=== PATIENT | female | born 1970 | race Caucasian/White ===

== ENCOUNTER 2025-02-04 21:04 | Emergency (ER) | payer OTHER, SELFPAY ==
[2025-02-04 21:07] VITALS: BP 203/101
[2025-02-04 21:43] VITALS: BP 185/88
--- NOTE | 2025-02-04 21:57 | ED.GENMED ---
History of Present Illness
General
Chief Complaint: Dizziness
Time Seen by Provider: 02/04/25 21:29
History of Present Illness
History of Present Illness:
55-year-old female with no pertinent medical history presents the emergency department for evaluation of abrupt onset of heart palpitations and vertigo beginning just prior to arrival. Has never had similar symptoms. She states she was lying on
the couch watching TV when she began to feel palpitations, got up to get a drink when she began to feel profoundly vertiginous. Describes it as 'like getting off the tilt a whirl'. No fevers, chills, or sweats. No chest pain or shortness of
breath. Does not take any prescription meds
Review of Systems
Review of Systems
Allergies reviewed?: Yes
All Other Systems: ROS reviewed and negative except as documented in HPI and ROS
Phy Exam
Physical Exam
Physical Exam:
GEN: Well appearing, NAD, WDWN
HEENT: Oral mucosa moist, no scleral icterus, no nasal congestion
Cardiac: Regular rate
Lung: No respiratory distress, no tachypnea
MSK: No gross deformity or injuries
Skin: Good color, no pallor or jaundice, no rashes
Neuro: AO x3; CN II-XII grossly intact. BUE strength 5/5 in all taylor, sensation intact and symmetric. BLE strength 5/5 in all taylor, sensation intact and symmetric. Vertigo provoked by head tilt but
Psych: Calm, cooperative
Course
Orders/Labs/Results
Orders:
Orders
02/04/25 21:10
ECG [Electrocardiogram (*1)] Urgent
Reason for Study: Hypertension, Benign
CT Head W/o Iv Contrast Urgent
Comment:
Reason For Exam: dizziness, HTN
EKG- Treatment ONCE
02/04/25 21:50
Complete Blood Count/With Diff Urgent
Comprehensive Metabolic Panel Urgent
Troponin I Urgent
02/04/25 21:57
Meclizine [Antivert] 25 mg PO NOW STA
Abnormal Lab Results
02/04/25
21:50
WBC 10.9 H 10^3/uL
(4.8-10.8)
Absolute Neuts (auto) 8.6 H 10^3/uL
(1.4-6.5)
Neutrophils % 78.9 H %
(42.2-75.2)
Lymphocytes % 15.4 L %
(20.5-51.1)
BUN 26 H mg/dl
(7-17)
Glucose 155 H mg/dl
(70-99)
02/04/25 21:50
02/04/25 21:50
Vital Signs
Initial and Last Documented VS:
Initial Vital Signs
Temp Pulse Resp BP Pulse Ox
98.2 F 98 20 203/101 98
02/04/25 21:07 02/04/25 21:07 02/04/25 21:07 02/04/25 21:07 02/04/25 21:07
Last Documented Vital Signs
Temp Pulse Resp BP Pulse Ox
98.2 F 93 24 144/66 97
02/04/25 21:07 02/05/25 00:15 02/05/25 00:15 02/05/25 00:00 02/05/25 00:15
MDM/Problems Addressed
MDM/Problems Addressed:
Likely benign positional vertigo. Patient's palpitations most likely due to frequent PACs noted on telemetry, no evidence of cardiac dysrhythmia. Labs are reassuring. Able to ambulate without severe vertigo at time of discharge.
*Critical Care Note
Total Time (30-74mins, 75-104mins- exclusive of procedures): Not Applicable
ED Attending Note
-
Portions of this chart may have been created with voice recognition software.� Occasional wrong word or��sound alike� substitutions may have occurred due to the inherent limitations of voice recognition software.
Discharge Plan
Departure
Patient Disposition: Home (Routine Discharge)
Date of Disposition: 02/04/25
Time of Disposition: 23:57
Patient with high blood pressure during this ER visit?: No
Discharge Problem:
Vertigo
Instructions: Vertigo (a Type of Dizziness) (DC)
Prescriptions:
New
meclizine 25 mg tablet
25 mg PO TID PRN (Reason: dizziness) Qty: 20 0RF
Referrals:
Vandana Valero NP [Family Provider] -
Interventions
Interventions:
*Risk Screen - Suicide Last Done: 02/04/25 22:00
*General Assessment Last Done: 02/04/25 21:07
*Neglect/Abuse Screening Last Done: 02/04/25 22:00
*ED- Fall Risk Assessment Last Done: 02/04/25 22:00
*ED COVID-19 Vaccine History Last Done: 02/04/25 22:00
*Nursing Disposition Last Done: 02/05/25 01:04
ED- Neurological Assessment Last Done: 02/04/25 22:00
ED- Cardiac Assessment Last Done: 02/04/25 22:00
ED Swallowing Screen Last Done: 02/04/25 22:00
Discharge Date and Time
Discharge Date/Time: 02/05/25 01:04
Print Language: SRI LANKAN
[2025-02-04 21:59] LABS: % Basophils 0.3 % (0-2); % Eosinophils 0.8 % (0-6); % Immature Granulocytes 0.4 % (0-0.5); % Lymphocytes 15.4 % (20.5-51.1); % Monocytes 4.2 % (1.7-9.3); % Neutrophils 78.9 % (42.2-75.2); Absolute Eosinophils 0.1 10^3/uL (0-0.7); Absolute Lymphocytes 1.7 10^3/uL (1.2-3.4); Absolute Monocytes 0.5 10^3/uL (0.1-0.6); Absolute Neutrophils 8.6 10^3/uL (1.4-6.5); Hematocrit 38.2 % (37.0-47.0); Hemoglobin 13.2 g/dL (12.0-16.0); Mean Corp Hgb Conc. 34.6 g/dL (33.0-37.0); Mean Corpuscular Hgb 30.1 pg (27.0-31.0); Nucleated Red Blood Cells % 0 %; Platelet Count 222 10^3/uL (130-400); Red Blood Cell Count 4.39 10^6/uL (4.20-5.40); Red Cell Dist. Width 12.1 % (11.5-14.5); White Blood Cell Count 10.9 10^3/uL (4.8-10.8)
[2025-02-04 22:00] VITALS: BP 170/77
[2025-02-04] MEDS: ANTIVERT 25 MG PO (22:06)
[2025-02-04 22:14] LABS: ALT (SGPT) 33 U/L (0-35); AST (SGOT) 35 U/L (14-36); Albumin 4.6 g/dl (3.5-5.0); Alkaline Phosphatase 65 U/L (38-126); Blood Urea Nitrogen 26 mg/dl (7-17); Calcium 9.2 mg/dl (8.4-10.2); Carbon Dioxide 25 mmol/L (22-30); Chloride 107 mmol/L (98-107); Glucose 155 mg/dl (70-99); Sodium 140 mmol/L (135-145); Total Bilirubin 0.6 mg/dl (0.2-1.3); Total Protein 7.5 g/dl (6.3-8.2); eGFR > 60.00
[2025-02-04 22:25] LABS: Troponin I < 0.012 ng/ml
[2025-02-04 23:00] VITALS: BP 175/75
[2025-02-04 23:15] VITALS: BP 179/76
[2025-02-05] VITALS: BP 144/66
== END 2025-02-05 01:04 | disposition home or self-care (01) ==
LOC: EMR 21:04
PROVIDERS: Student in an Organized Health Care Education/Training Program; EMERGENCY PHYSICIAN Emergency Medicine; FAMILY PHYSICIAN Nurse Practitioner Family
DX: R42 Dizziness and giddiness (principal)
CPT/HCPCS: 99285; 70450; 80053; 84484; 85025; 93005